=== PATIENT | female | born 1990 | race Caucasian/White ===

== ENCOUNTER 2016-05-14 22:10 | Emergency (ER) | payer SELFPAY ==
[~2016-05-14 22:10] MED LIST: ACET1TAB40 PO; BACTDS PO; FLUT9.9S NASAL; IBUP-1542 PO; IBUP400T22 PO; LEVO500T72 PO; MAG-19 PO; NITR-58 PO; OMEP20CA16 PO; ONDA4TAB35 PO; SODI75SP NASAL; SYN1 PO
== END 2016-05-14 23:27 | disposition left against medical advice (07) ==
LOC: E/R 22:10
DX: Z53.21 Procedure and treatment not carried out due to patient leaving prior to being seen by health care provider (principal)

== ENCOUNTER 2017-04-20 05:47 | Emergency (ER) | END 2017-04-20 07:31 | disposition left against medical advice (07) ==

== ENCOUNTER 2017-04-20 09:50 | Emergency (ER) | END 2017-04-20 12:11 | disposition home or self-care (01) ==

== ENCOUNTER 2017-12-07 18:37 | Emergency (ER) | END 2017-12-08 01:09 | disposition home or self-care (01) ==

== ENCOUNTER 2018-08-30 19:21 | Emergency (ER) | payer MEDICAID, OTHER ==
[~2018-08-30] VITALS: Wt 83.1 kg
[~2018-08-30 19:21] MED LIST changes: +ALBU18HF INHALATION; +GUAI-637 PO; +IBUP-1541 PO; +IBUP-1561 PO; -IBUP400T22 PO; +IBUP800T48 PO; +LEVO-86 PO; +LEVO500T48 PO; -LEVO500T72 PO; +RANI150T35 PO; +SODI126M NASAL; -SYN1 PO
[2018-08-30] MEDS ORDERED: FAMOTIDINE 20 MG TAB PO STA (21:15)
[2018-08-30] MEDS ORDERED: LIDOCAINE/MYLANTA 40 ML BTL PO STA (21:15)
[2018-08-30] MEDS ORDERED: RANI150T35 PO (22:49)
[2018-08-30 22:50] VITALS: BP 133/85; PULSE 71; RESP 18
--- NOTE | 2018-08-31 03:54 | ERD ---
ER Documentation Chief Complaint Chief Complaint bone pain x1yr, numb fing/toes, weak x4d, mid CP 'tight', RLQ AP HPI 27-year-old female with past medical history of hypothyroidism and fatty liver presents to the emergency department complaining of tingling in her fingers and toes in her tongue intermittently for the past several weeks. She also reports full body aches and bone pain for the past 1 year but worse over the past 1 week. She also has some midepigastric pain which she describes as burning. She is post cholecystectomy. She denies any nausea, vomiting, diarrhea, chest pain, anxiety, fevers, chills, or other symptoms at this time. ROS All systems reviewed and are negative except as per history of present illness. Medications Home Meds Active Scripts Ranitidine Hcl* (Zantac*) 150 Mg Tablet, 150 MG PO BID PRN for EPIGASTRIC PAIN, #30 TAB Prov:CARLOS NESBITT PA-C 08/30/18 Ranitidine Hcl* (Zantac*) 150 Mg Tablet, 150 MG PO BID PRN for EPIGASTRIC PAIN, #30 TAB Prov:GABRIEL,MILVIA 12/08/17 Ibuprofen* (Motrin*) 400 Mg Tab, 400 MG PO Q6, #30 TAB Prov:GABRIEL,MILVIA 12/08/17 Sodium Chloride (Saline Nasal Mist) 126 Ml Mist, 2 SPRAY NASAL Q2H PRN for NASAL CONGESTION, #1 BOTTLE Prov:LIZBETH GARZA. RUBBER WORKER 04/20/17 Albuterol Sulfate* (Ventolin HFA*) 18 Gm Hfa.aer.ad, 2 PUFF INHALATION Q4H, #1 INHALER Prov:LIZBETH GARZA. RUBBER WORKER 04/20/17 Guaifenesin* (Robitussin*) 100 Mg/5 Ml Syrup, 200 MG PO Q4H PRN for COUGH, #120 ML Prov:LIZBETH GARZA [employer] WORK[employer] 04/20/17 Ibuprofen* (Motrin*) 800 Mg Tab, 800 MG PO Q6H PRN for PAIN AND OR ELEVATED TEMP, #30 TAB Prov:LIZBETH GARZA [employer] WORK[employer] 04/20/17 Ibuprofen* (Motrin*) 600 Mg Tab, 600 MG PO Q6H PRN for PAIN AND OR ELEVATED TEMP, #15 TAB Prov:LORI GIRALDO MD 01/07/16 Magaldrate/Simethicone* (Mylanta*) 355 Ml Susp, 30 ML PO QID PRN for GASTROINTESTINAL UPSET, #1 BOTTLE Prov:RODRICK ARANDA [employer] WORK[employer] 05/28/15 Omeprazole* (Omeprazole*) 20 Mg Capsule.dr, 20 MG PO DAILY, #30 CAP Prov:RODRICK ARANDA [employer]BB[employer] WORK[employer] 05/28/15 Ibuprofen* (Motrin*) 400 Mg Tab, 400 MG PO Q6H PRN for PAIN AND OR ELEVATED TEMP, #30 TAB Prov:RODRICK ARANDA [employer]BB[employer] WORK[employer] 05/28/15 Sodium Chloride/Sod Bicarb (Nasa Mist Saline [place]) 75 Ml [place], 2 SPRAYS NASAL BID, #1 BOTTLE Prov:LYNN CHAN I. RUBBER WORKER 04/05/15 Nitrofurantoin Monohyd Macrocr* (Macrobid*) 100 Mg Capsr, 100 MG PO BID for 3 Days, CAP Prov:LYNN CHAN I. RUBBER WORKER 04/05/15 Ibuprofen* (Ibuprofen*) 400 Mg Tablet, 400 MG PO Q6H PRN for PAIN, #30 TAB Prov:ESTER RIBEIRO PA-C 03/27/15 Fluticasone Propionate (Flonase Allergy Relief) 9.9 Ml [place].susp, 1 SPRAY NASAL BID, #1 BOTTLE TO EACH NOSTRIL Prov:ESTER RIBEIRO PA-C 03/24/15 Acetaminophen-Codeine* (Acetaminophen-Cod #3*) 300-30 Mg Tab, 2 TAB PO Q4H PRN for PAIN, #20 TAB Prov:ESTER RIBEIRO PA-C 03/24/15 Levofloxacin* (Levaquin*) 500 Mg Tablet, 500 MG PO DAILY for 10 Days, TAB Prov:ESTER RIBEIRO PA-C 03/24/15 Ondansetron Hcl* (Zofran* ODT) 4 mg -ODT Tab.disper, 4 MG PO Q4H PRN for NAUSEA AND OR VOMITING, #20 TAB Prov:VIANEY WOODWARD PA-C 03/09/15 Sulfamethoxazole-Trimethoprim* (Bactrim* DS) 800-160 Mg Tab, 1 TAB PO BID for 5 Days, TAB Prov:VIANEY WOODWARD [place] 03/09/15 Reported Medications Levothyroxine Sodium* (Synthroid*) Unknown Strength Tablet, PO BEFORE BREAKFAST, #30 TAB 05/28/15 Allergies Allergies: Coded Allergies: Penicillins (Verified Allergy, Unknown, 12/07/17) tetracycline (Verified Allergy, Unknown, 12/07/17) PMhx/Soc History of Surgery: Yes (Cholecystectomy and stent removal) Anesthesia Reaction: No Hx Neurological Disorder: No Hx Respiratory Disorders: Yes (PNA) Hx Cardiac Disorders: No Hx Psychiatric Problems: No Hx Miscellaneous Medical Probl: No Hx Alcohol Use: No Hx Substance Use: No Hx Tobacco Use: No Smoking Status: Never smoker FmHx Family History: No diabetes Physical Exam Vitals Vital Signs Date Temp Pulse Resp B/P (MAP) Pulse Ox O2 O2 Flow FiO2 Time Delivery Rate 08/30/18 99.3 71 18 133/85 99 Room Air 22:50 (101) 08/30/18 99.3 83 22 136/88 97 19:45 (104) Physical Exam Const: No acute distress Head: Atraumatic Eyes: Normal Conjunctiva ENT: Normal External Ears, Nose and Mouth. Neck: Full range of motion. No meningismus. Resp: Clear to auscultation bilaterally Cardio: Regular rate and rhythm, no murmurs Abd: Soft, non tender, non distended. Normal bowel sounds. No rebound tenderness or guarding. No McBurney's point tenderness. Skin: No petechiae or rashes Back: No midline or flank tenderness Ext: No cyanosis, or edema Neur: Awake and alert Psych: Normal Mood and Affect Result Diagram: 08/30/18212908/30/182129 Results 24 hrs Laboratory Tests Test 08/30/18 21:30 08/30/18 21:32 White Blood Count 10.6 10^3/ul Red Blood Count 4.41 10^6/ul Hemoglobin 13.5 g/dl Hematocrit 38.7 % Mean Corpuscular Volume 87.8 fl Mean Corpuscular Hemoglobin 30.6 pg Mean Corpuscular Hemoglobin Concent 34.9 g/dl Red Cell Distribution Width 12.0 % Platelet Count 413 10^3/UL Mean Platelet Volume 8.7 fl Immature Granulocytes % 0.200 % Neutrophils % % Segmented Neutrophils % (Manual) 36 % Lymphocytes % % Lymphocytes % (Manual) 62 % Monocytes % % Monocytes % (Manual) 2 % Eosinophils % % Basophils % % Nucleated Red Blood Cells % 0.0 /100WBC Immature Granulocytes # 0.020 10^3/ul Neutrophils # 10^3/ul Lymphocytes (Manual) 6.5 10^3/ul Lymphocytes # 10^3/ul Monocytes # 10^3/ul Monocytes # (Manual) 0.2 10^3/ul Eosinophils # 10^3/ul Basophils # 10^3/ul Nucleated Red Blood Cells # 10^3/ul Platelet Estimate NORMAL Polychromasia 1+ Poikilocytosis 1+ Urine Color STRAW Urine Clarity CLEAR Urine pH 8.0 Urine Specific [place] 1.009 Urine Ketones NEGATIVE mg/dL Urine Nitrite NEGATIVE mg/dL Urine Bilirubin NEGATIVE mg/dL Urine Urobilinogen NEGATIVE mg/dL Urine Leukocyte Esterase NEGATIVE Kike/ul Urine Hemoglobin NEGATIVE mg/dL Urine Glucose NEGATIVE mg/dL Urine Total Protein NEGATIVE mg/dl Sodium Level 140 mmol/L Potassium Level 3.9 mmol/L Chloride Level 102 mmol/L Carbon Dioxide Level 28 mmol/L Anion Gap 10 Blood Urea Nitrogen 16 mg/dl Creatinine 0.64 mg/dl Est Glomerular Filtrat Rate mL/min > 60 mL/min Glucose Level 92 mg/dl Calcium Level 9.9 mg/dl Total Bilirubin 0.4 mg/dl Direct Bilirubin 0.00 mg/dl Indirect Bilirubin 0.4 mg/dl Aspartate Amino Transf (AST/SGOT) 35 IU/L Alanine Aminotransferase (ALT/SGPT) 36 IU/L Alkaline Phosphatase 85 IU/L Total Protein 8.4 g/dl Albumin 4.7 g/dl Globulin 3.70 g/dl Albumin/Globulin Ratio 1.27 Lipase 161 U/L Thyroid Stimulating Hormone (TSH) 0.836 MIU/L POC Beta HCG, Qualitative NEGATIVE Current Medications Medications Dose Sig/Brody Start Time Status Last (Trade) Ordered Route PRN Stop Time Admin Dose Reason Admin Famotidine 20 mg ONCE STAT 08/30/18 DC 08/30/18 (Pepcid) PO 21:15 21:37 08/30/18 21:18 40 ml ONCE STAT 08/30/18 DC 08/30/18 Miscellaneous PO 21:15 21:37 Medication 08/30/18 21:18 (Gi Cocktail (2)) Procedures/MDM 27-year-old female presents with complaints of bone pain, numbness and tingling in her hands and feet and her tongue. CBC, CMP, TSH were within normal limits. Symptoms may be secondary to anxiety. No evidence of life-threatening or emergent pathology. Patient was informed of results and advised to follow-up with primary care physician within the next 24 to 48 hours and return to the department immediately for any new or worsening or concerning symptoms. She was in agreement and questions and concerns were addressed prior to discharge. EKG: Interpreted by ED physician. Rate/Rhythm: Normal Sinus Rhythm with a rate of [address] bpm. QRS, ST, T-waves: No changes consistent w/ acute ischemia Impression: No evidence of ischemia or arrhythmia Departure Diagnosis: Primary Impression: Myalgia Condition: Fair Patient Instructions: Treating Thyroid Problems, Myalgias [facility] Usted se cormier hecho un examen mdico de control que le indica que no est en xuan condicin que requiera tratamiento urgente en el Departamento de Emergencia. Un estudio ms profundo y el tratamiento de cummings condicin pueden esperar sin ningn riesgo hasta que usted sea atendida/o en el consultorio de cummings mdico o xuan clnica. Es responsabilidad suya arreglar xuan darryl para el seguimiento del saniya. MANEJO DE CONDICIONES NO URGENTES EN EL FUTURO 1) Si usted tiene un mdico de atencin primaria: Usted debera llamar a cummings mdico de atencin primaria antes de venir al departamento de emergencia. Despus de las horas de consultorio, cummings doctor o cummings asociado/a est disponible por telfono. El mdico o enfermero de zulema en el servicio telefnico puede asesorarle por ivet medio para atender el problema, o saniya contrario se puede programar xuan darryl. 2) Si usted no tiene un mdico de atencin primaria: Llame al mdico o clnica de referencia que aparece abajo karolina las horas de consultorio para hacer xuan darryl para que le vean. CLINICAS: [facility] [id number] [facility] [phone] [facility] [phone] [place] [address] [phone] [place] [address] [phone] [place] [id number] [phone] Additional Instructions: Llame al doctor MAANA y vinh xuan DARRYL PARA DENTRO DE 1-2 PIKE.Dgale a la secretaria que nosotros le instruimos hacer esta darryl.Avise o llame si cummings condicin se empeora antes de la darryl. Regresa aqui si peor o no mejor. CARLOS NESBITT PA-C August 31, 2018 03:54
== END 2018-08-30 22:50 | disposition home or self-care (01) ==
LOC: FTE 19:21
DX: M79.10 Myalgia, unspecified site (principal); E03.9 Hypothyroidism, unspecified
CPT/HCPCS: 36415; 80053; 81003; 81025; 83690; 84443; 85025; 93005; Z7502; Z7610